=== PATIENT | male | born 1950 | race Caucasian/White ===

== ENCOUNTER 2016-06-17 17:59 | Emergency (ER) | payer MEDICARE, OTHER ==
[~2016-06-17] VITALS: Ht 177.8 cm; Wt 65.3 kg
[~2016-06-17 17:59] MED LIST: ASPIRIN 81MG TA81 MG PO; ATIVAN1 MG PO; ATORVASTATIN CA40 MG PO; CLOPIDOGREL75 M2 PO; LISINOPRIL5 MG PO; LORTAB 500 MG-71 TAB PO; MELOXICAM15 MG PO; METOPROLOL SUCC50 M4 PO; MOTRIN600 MG PO; NITROGLYCERIN0.4 MG SL; TAMSULOSIN HCL0.4 MG PO; VITAMIN B122500 MC1 PO
[2016-06-17] MEDS ORDERED: OMEPRAZOLE20 MG PO (18:10)
[2016-06-17] MEDS ORDERED: METHOCARBAMOL500 M1 PO (18:10)
[2016-06-17] MEDS ORDERED: VITAMIN D50000 I1 PO (18:11)
--- NOTE | 2016-06-17 19:37 | Emergency Room Report ---
History of Present Illness Time Seen by MD Ernst Presenting Problem in Triage Pt arrived:Walked Presenting Problem:C/O NUMBESS ON L SIDE OF FACE AND IN R FOOT X3 DAYS. 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 N Clinical Suspician of Infection? N Mental Status: 1 - Regular (Normal Baseline) Sepsis Risk:Low Sepsis Risk Have you (or family members/close friends) recently traveled outside the [place]? N If Yes, where/when: Have you had exposure to infectious disease within the past month? N TB? Other? Specify: Patient with chronic intermittent right foot numbness since 2016. This episode has lasted three weeks. Also reports left cheek numbness for one week. No other complaints. ALLERGIES Coded Allergies: codeine (NA-NAUSEA/VOMITING 03/03/16) Home Medications Reported Medications CLOPIDOGREL BISULFATE (Clopidogrel) 75 MG PO DAILY 90 Days Atorvastatin Calcium 40 MG PO QHS 90 Days NITROGLYCERIN (Nitrostat) 0.4 MG SL [id number] PRN CP 10 Days TAMSULOSIN HCL (Tamsulosin HCl) 0.4 MG PO QHS 90 Days Meloxicam (Meloxicam 15MG) 15 MG PO DAILY 90 Days Metoprolol Succinate (Metoprolol Succinate XL) 50 MG PO DAILY 90 Days Lorazepam (Ativan 1MG) 1 MG PO BID 30 Days ASPIRIN (Aspirin) 81 MG PO DAILY Lisinopril 5 MG PO QHS 90 Days Methocarbamol 1,000 MG PO BID PRN PAIN #540 Omeprazole (Omeprazole 20MG) 20 MG PO DAILY #180 ERGOCALCIFEROL (VITAMIN D2) (Vitamin D2) 50,000 IUNITS PO BIWEEKLY #24 History Medical History General CAD? Yes Angina: No [place]: Yes Hypertension? Yes Hyperlipidemia? Yes CHF? No DVT? No PE? No COPD? No Asthma? No Anemia? No GERD? Yes Gastric ulcers? No GI Bleed? No Hernia? Yes Thyroid Problems? No Hypothyroidism? No CVA? No Seizures? No Diabetes? No Renal Insuffiency? No End Stage Renal Disease? No UTI? No Stones? No BPH? Yes GB Disease: No Nephritic Syndrome? No Asplenia? No Hepatitis? No Sickle Cell Disease? No Arthritis? Yes Migraines? No Cataracts? Yes Glaucoma? No MRSA? No HIV? No TB? No Anxiety? No Depression? No Cancer? No More? No Immunization Hx DT/Tetanus 1-4 YRS Surgical Hx Previous Surgery?Y R ARM HEART CATH-STENT PLACED -RADIAL ACCESS 09/15/15 [facility] HEART CATH 2013-STENT HERNIA REPAIR Social History Smoking Hx Smoker: Never Smoker Tobacco: No Alcohol Alcohol: No Review of Systems All Other Systems Reviewed and Negative Psychiatric/Neurological see HPI Physical Exam Vital Signs Vital Signs Date Time Temp Pulse Resp B/P Pulse O2 O2 Flow FiO2 Ox Delivery Rate 06/17 1849 65 18 142/73 99 06/17 1800 98.2 64 18 152/90 99 General Appearance normal appearance, WD/WN, no apparent distress Eye Exam - bilateral eye normal exam, bilateral eye PERRL, bilateral eye EOMI (no diplopia no field cuts) Neck normal inspection, non-tender, supple Respiratory Status Yes: trachea midline, chest symmetrical, non tender chest. No: respiratory distress, tender on palpation, use of accessory muscles, pain on inspiration, pain on expiration, productive cough, non productive cough. Lung Sounds bilateral: normal breath sounds, lungs clear. 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 Overall no numbness to foot. Normal neurological exam other than some baseline STEBBINS. Medical Decision Making LABS/Meds/Orders Pt receiving controlled substance in ED? No Results/Orders Orders Procedure Date/time Status DIET-NOTHING BY MOUTH 06/[address] HEAD W/O CONTRAST 06/[address] HEAD REQ 06/17 1811 Complete XRAY/CT/US XRAY/CT/US CT head CT interpretation by reviewed by me ([facility] report reviewed ) Time results known: 1934 CT Results normal/NAD Departure Departure Time of Disposition 1933 Disposition DC Home or Self Care(routine) Clinical Impression Primary Impression: Facial neurological complaint Condition STABLE Referrals Brayan Moore MD (Family) Patient Instructions DI for Numbness/tingling Additional Instructions See Dr. Moore for follow up in two to four days. CT scan negative. Discharge Counseling Counseled pt/family regarding diagnosis, test results, home care, follow up needs ED Critical Care Critical Care No at 1936
--- NOTE | 2016-06-17 19:37 | Emergency Room Report ---
History of Present Illness Time Seen by MD Ernst Presenting Problem in Triage Pt arrived:Walked Presenting Problem:C/O NUMBESS ON L SIDE OF FACE AND IN R FOOT X3 DAYS. 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 N Clinical Suspician of Infection? N Mental Status: 1 - Regular (Normal Baseline) Sepsis Risk:Low Sepsis Risk Have you (or family members/close friends) recently traveled outside the [place]? N If Yes, where/when: Have you had exposure to infectious disease within the past month? N TB? Other? Specify: Patient with chronic intermittent right foot numbness since 2016. This episode has lasted three weeks. Also reports left cheek numbness for one week. No other complaints. ALLERGIES Coded Allergies: codeine (NA-NAUSEA/VOMITING 03/03/16) Home Medications Reported Medications CLOPIDOGREL BISULFATE (Clopidogrel) 75 MG PO DAILY 90 Days Atorvastatin Calcium 40 MG PO QHS 90 Days NITROGLYCERIN (Nitrostat) 0.4 MG SL [id number] PRN CP 10 Days TAMSULOSIN HCL (Tamsulosin HCl) 0.4 MG PO QHS 90 Days Meloxicam (Meloxicam 15MG) 15 MG PO DAILY 90 Days Metoprolol Succinate (Metoprolol Succinate XL) 50 MG PO DAILY 90 Days Lorazepam (Ativan 1MG) 1 MG PO BID 30 Days ASPIRIN (Aspirin) 81 MG PO DAILY Lisinopril 5 MG PO QHS 90 Days Methocarbamol 1,000 MG PO BID PRN PAIN #540 Omeprazole (Omeprazole 20MG) 20 MG PO DAILY #180 ERGOCALCIFEROL (VITAMIN D2) (Vitamin D2) 50,000 IUNITS PO BIWEEKLY #24 History Medical History General CAD? Yes Angina: No [place]: Yes Hypertension? Yes Hyperlipidemia? Yes CHF? No DVT? No PE? No COPD? No Asthma? No Anemia? No GERD? Yes Gastric ulcers? No GI Bleed? No Hernia? Yes Thyroid Problems? No Hypothyroidism? No CVA? No Seizures? No Diabetes? No Renal Insuffiency? No End Stage Renal Disease? No UTI? No Stones? No BPH? Yes GB Disease: No Nephritic Syndrome? No Asplenia? No Hepatitis? No Sickle Cell Disease? No Arthritis? Yes Migraines? No Cataracts? Yes Glaucoma? No MRSA? No HIV? No TB? No Anxiety? No Depression? No Cancer? No More? No Immunization Hx DT/Tetanus 1-4 YRS Surgical Hx Previous Surgery?Y R ARM HEART CATH-STENT PLACED -RADIAL ACCESS 09/15/15 [facility] HEART CATH 2013-STENT HERNIA REPAIR Social History Smoking Hx Smoker: Never Smoker Tobacco: No Alcohol Alcohol: No Review of Systems All Other Systems Reviewed and Negative Psychiatric/Neurological see HPI Physical Exam Vital Signs Vital Signs Date Time Temp Pulse Resp B/P Pulse O2 O2 Flow FiO2 Ox Delivery Rate 06/17 1849 65 18 142/73 99 06/17 1800 98.2 64 18 152/90 99 General Appearance normal appearance, WD/WN, no apparent distress Eye Exam - bilateral eye normal exam, bilateral eye PERRL, bilateral eye EOMI (no diplopia no field cuts) Neck normal inspection, non-tender, supple Respiratory Status Yes: trachea midline, chest symmetrical, non tender chest. No: respiratory distress, tender on palpation, use of accessory muscles, pain on inspiration, pain on expiration, productive cough, non productive cough. Lung Sounds bilateral: normal breath sounds, lungs clear. 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 Overall no numbness to foot. Normal neurological exam other than some baseline [place]. Medical Decision Making LABS/Meds/Orders Pt receiving controlled substance in ED? No Results/Orders Orders Procedure Date/time Status DIET-NOTHING BY MOUTH 06/[address] HEAD W/O CONTRAST 06/[address] HEAD REQ 06/17 1811 Complete XRAY/CT/US XRAY/CT/US CT head CT interpretation by reviewed by me ([facility] report reviewed ) Time results known: 1934 CT Results normal/NAD Departure Departure Time of Disposition 1933 Disposition DC Home or Self Care(routine) Clinical Impression Primary Impression: Facial neurological complaint Condition STABLE Referrals Brayan Moore MD (Family) Patient Instructions DI for Numbness/tingling Additional Instructions See Dr. Moore for follow up in two to four days. CT scan negative. Discharge Counseling Counseled pt/family regarding diagnosis, test results, home care, follow up needs ED Critical Care Critical Care No at 1936
[2016-06-17 19:42] VITALS: BP 135/69
--- NOTE | 2016-06-17 20:01 | RADIOLOGY REPORT PS360 ---
CT HEAD W/O CONTRAST HISTORY: L SIDED FACIAL NUMBNESS, R FOOT NUMBNESS COMPARISON: None TECHNIQUE: Axial images obtained without contrast. Brain and bone windows reviewed. FINDINGS: No midline shift, mass effect, intracranial hemorrhage, hydrocephalus, or extra-axial fluid collection is evident. There are involutional changes of age The calvarium has an unremarkable appearance. No mastoid effusion. The visualized paranasal sinuses are unremarkable. IMPRESSION: Negative CT head without contrast. No acute finding.
== END 2016-06-17 19:43 | disposition home or self-care (01) ==
LOC: ER 17:59
DX: R20.0 Anesthesia of skin (principal); I25.10 Atherosclerotic heart disease of native coronary artery without angina pectoris; I10 Essential (primary) hypertension; K21.9 Gastro-esophageal reflux disease without esophagitis

== ENCOUNTER → 2016-06-24 | Outpatient (CLI) | payer MEDICARE, OTHER ==
[~2016-06-24] MED LIST changes: +METHOCARBAMOL500 M1 PO; +OMEPRAZOLE20 MG PO; +VITAMIN D50000 I1 PO
--- NOTE | 2016-06-25 06:32 | RADIOLOGY REPORT PS360 ---
MRI-BRAIN W/O HISTORY: Left-sided facial numbness and paralysis, right foot numbness, headache, left leg paresthesias HEADACHE, LEFT LEG PARESTHESIAS, FACIAL PARALYSIS ON LEFT COMPARISON: 02/27/2015 TECHNIQUE: Standard multiplanar multiecho sequences are performed without contrast. FINDINGS: No midline shift, mass effect, intracranial hemorrhage, hydrocephalus, or acute cortical infarction is evident. No restricted diffusion. There is mild generalized atrophy. There are few nonspecific T2 white matter hyperintensities. The cerebellopontine angles, cerebellum, and delphine are unremarkable. There is tortuosity of the dominant left vertebral artery with some deformity of the left aspect of the brainstem. This is not significantly changed and may only represent an incidental finding. Neurovascular compression syndrome is also a consideration and requires clinical correlation. The pituitary is unremarkable. There is mild ethmoid and left sphenoid sinus disease. No obvious mastoid effusion. IMPRESSION: 1. No acute intracranial pathology with no significant change from 02/27/2015 2. Involutional changes of age. 3. Mild deformity of the left aspect of the brainstem from a dominant tortuous left vertebral artery nonspecific and unchanged likely an incidental finding but may be seen with neurovascular compression syndrome which requires clinical correlation. 4. Mild sinus disease
== END ==
LOC: RAD 14:21
DX: R51 Headache (principal); R20.2 Paresthesia of skin; G51.0 Bell's palsy

== ENCOUNTER → 2016-06-28 | Outpatient (CLI) | payer MEDICARE, OTHER ==
[2016-06-28 16:50] LABS: HEMOGLOBIN 14.2 g/dL (14.1-18.0); LYMPH # 2.1 K/mm3 (0.7-4.5); LYMPH % 23.6 % (10-50)
[2016-06-28 18:05] LABS: BUN 18 mg/dL (7-18)
[2016-06-28 18:17] LABS: GFR (ESTIMATED) 60 ML/MIN (>60)
== END ==
LOC: LAB 16:36
PROVIDERS: Internal Medicine Adolescent Medicine
DX: M79.1 Myalgia (principal)

== ENCOUNTER → 2017-02-23 | Outpatient (CLI) | payer MEDICARE, OTHER ==
[2017-02-24 08:46] LABS: Iron 56 ug/dL (38-169); Iron Saturation 22 % (15-55); UIBC 196 ug/dL (111-343)
== END ==
LOC: LAB 07:07
PROVIDERS: Internal Medicine Adolescent Medicine
DX: D64.9 Anemia, unspecified (principal)

== ENCOUNTER → 2017-03-02 | Outpatient (CLI) | payer MEDICARE, OTHER ==
--- NOTE | 2017-03-02 10:38 | RADIOLOGY REPORT PS360 ---
CHEST(2 VIEWS-NOT PORTABLE) HISTORY: Productive cough with shortness of air COUGH ORDERING PHYSICIAN: Brayan Moore MD PATIENT AGE: 66 years COMPARISON: 06/27/2015 FINDINGS: The cardiomediastinal silhouette and pulmonary vascularity are within normal limits. The lungs are clear without infiltrates, suspicious nodules, or pleural effusions. No acute bony abnormalities. Calcified granulomas present in the right upper lobe. There is mild reversal of the thoracic kyphosis IMPRESSION: No acute finding
== END ==
LOC: RAD 10:06
DX: R05 Cough (principal)

== ENCOUNTER → 2017-03-22 | Outpatient (CLI) | payer MEDICARE, OTHER ==
[2017-03-22 14:42] LABS: HEMOGLOBIN 13.8 g/dL (14.1-18.0); LYMPH # 2.5 K/mm3 (0.7-4.5); LYMPH % 28.9 % (10-50)
[2017-03-22 15:28] LABS: URINE BILIRUBIN - DIPSTICK NEGATIVE (NEG); URINE BLOOD NEGATIVE (NEG)
[2017-03-22 16:44] LABS: BUN 17 mg/dL (7-18)
[2017-03-22 16:57] LABS: GFR (ESTIMATED) 67 ML/MIN (>60)
== END ==
LOC: LAB 14:16
PROVIDERS: Surgery
DX: R10.2 Pelvic and perineal pain (principal)

== ENCOUNTER → 2017-03-25 | Outpatient (CLI) | payer MEDICARE, OTHER ==
--- NOTE | 2017-03-25 11:41 | RADIOLOGY REPORT PS360 ---
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 The colon is visualized from rectum to cecum including terminal ileum. The appendix was filled as well. Moderate diverticulosis involves the sigmoid colon. No evidence of diverticulitis. No annular constricting lesion, fixed polypoid filling defect, or mucosal abnormality apparent. The terminal ileum has an unremarkable appearance. IMPRESSION: 1. Sigmoid diverticulosis. 2. Otherwise negative air contrast barium minimal
--- NOTE | 2017-03-25 11:41 | RADIOLOGY REPORT PS360 ---
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 The colon is visualized from rectum to cecum including terminal ileum. The appendix was filled as well. Moderate diverticulosis involves the sigmoid colon. No evidence of diverticulitis. No annular constricting lesion, fixed polypoid filling defect, or mucosal abnormality apparent. The terminal ileum has an unremarkable appearance. IMPRESSION: 1. Sigmoid diverticulosis. 2. Otherwise negative air contrast barium minimal
== END ==
LOC: RAD 09:00
DX: R10.30 Lower abdominal pain, unspecified (principal)

== ENCOUNTER → 2017-03-28 | Outpatient (CLI) | payer MEDICARE, OTHER ==
--- NOTE | 2017-03-28 21:06 | RADIOLOGY REPORT PS360 ---
SMALL BOWEL SERIES HISTORY: LOWER ABD PAIN Patient Age: 66 years: Male Ordering Physician: JAYJAY STEIN MD TECHNIQUE: The small bowel series following ingestion of single contrast barium . Spot images performed on Dr. Hamlin to evaluate terminal ileum and small bowel. 2 minutes 40 seconds fluoroscopy time overall spot views COMPARISON :Recent barium enema 2. Extensive diverticulosis in sigmoid colon. FINDINGS Patient mainly complains of pain at left lower quadrant which I suspect is mainly related to the extensive diverticulosis seen on prior barium enema. Today's cashier credit film shows residual barium contrast within the extensive diverticulosis at the sigmoid colon. Prominent levoscoliosis of L-spine with multilevel degenerative disc changes noted on the cashier credit view is well . The small bowel appears normal in caliber. No dilatation. No mucosal thickening. Slightly slow progression through the with seem to be particularly long and tortuous ileum we do reach the right colon. The spot views of trauma ileum appear normal. Spot views elsewhere at small bowel show normal pliable compressible appearance of small bowel with no intraluminal lesion nor abnormal separation nor mucosal thickening.. Contour of the stomach on these views. IMPRESSION Normal small bowel series Slightly slow but but adequate transit time of barium through small bowel. Incidental note Retained barium within the extensive diverticula of sigmoid colon noted from recent BE
--- NOTE | 2017-03-28 21:06 | RADIOLOGY REPORT PS360 ---
SMALL BOWEL SERIES HISTORY: LOWER ABD PAIN Patient Age: 66 years: Male Ordering Physician: JAYJAY STEIN MD TECHNIQUE: The small bowel series following ingestion of single contrast barium . Spot images performed on Dr. Hamlin to evaluate terminal ileum and small bowel. 2 minutes 40 seconds fluoroscopy time overall spot views COMPARISON :Recent barium enema 2. Extensive diverticulosis in sigmoid colon. FINDINGS Patient mainly complains of pain at left lower quadrant which I suspect is mainly related to the extensive diverticulosis seen on prior barium enema. 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 Prominent levoscoliosis of L-spine with multilevel degenerative disc changes noted on the cyber security analyst view is well . The small bowel appears normal in caliber. No dilatation. No mucosal thickening. Slightly slow progression through the with seem to be particularly long and tortuous ileum we do reach the right colon. The spot views of trauma ileum appear normal. Spot views elsewhere at small bowel show normal pliable compressible appearance of small bowel with no intraluminal lesion nor abnormal separation nor mucosal thickening.. Contour of the stomach on these views. IMPRESSION Normal small bowel series Slightly slow but but adequate transit time of barium through small bowel. Incidental note Retained barium within the extensive diverticula of sigmoid colon noted from recent BE
== END ==
LOC: RAD 11:00
DX: R10.30 Lower abdominal pain, unspecified (principal)